=== PATIENT | male | born 1995 | race Asian ===

== ENCOUNTER 2018-09-28 13:18 | Emergency (ER) | payer BC ==
[~2018-09-28] VITALS: Ht 180.3 cm; Wt 83.9 kg
[2018-09-28 13:30] VITALS: TEMP 99.1
[2018-09-28 18:41] VITALS: BP 118/50
== END 2018-09-28 18:43 | disposition home or self-care (01) ==
LOC: ED 13:18
DX: B34.9 Viral infection, unspecified (principal); E86.0 Dehydration
CPT/HCPCS: 87502; 87651; 96365; 99284